=== PATIENT | female | born 1950 | race Caucasian/White ===

== ENCOUNTER 2023-03-28 16:50 | Emergency (ER) | payer MEDICARE, SELFPAY ==
--- NOTE | ~2023-03-28 | CT_ITS ---
Non-contrast Head CT History: Hemorrhage COMPARISON: 03/28/2023 Technique: Axial non-contrast imaging of the brain was performed. Dose reduction technique was used on this scan by utilizing automated exposure control and iterative reconstruction technique. The dose -length product (DLP) was 681.00 mGy-cm. Findings: Stable focal hyperdensity in the right paramedian cerebellum (coronal image 58). No other p arenchymal abnormality seen. The ventricles and subarachnoid spaces are normal in size. The calvari um appears normal. The visualized paranasal sinuses and mastoid air cells are clear. Impression: Stable focal hyperdensity in the right paramedian cerebellum. I would favor focal calcification over hemorrhage. Reviewed, dictated and finalized at location M. Impression: Stable focal hyperdensity in the right paramedian cerebellum. I would favor foc al calcification over hemorrhage.
--- NOTE | ~2023-03-28 | CT_ITS ---
EXAMINATION: CT BRAIN W/O DATE: 03/28/2023 19:42 INDICATION: Nausea and vomiting TECHNIQUE: Computed tomography (CT) of the head was performed without intravenous contrast. The dose- length product was 605.33 mGy-cm. Automated exposure control and iterative reconstruction technique w ere employed. COMPARISON: No prior studies for comparison. FINDINGS: Normal brain parenchymal volume for age. Normal luo-white differentiation. There is a foca l hyperdensity along the inferior aspect of the cerebellum paracentral to the right. Small this may r epresent calcification secondary to previous infectious/inflammatory etiology or small focal hemorrha ge. There are scattered mild periventricular and subcortical white matter changes, most likely relate d to small vessel ischemic disease (microangiopathy). There is intracranial atherosclerosis. There is calcified extra-axial mass frontal lobe measuring 1.7 x 5 cm, likely an exostosis or meningioma. No ventriculomegaly or midline shift. Midline sagittal images demonstrate a normal corpus callosum, c raniovertebral junction and sella turcica. Basilar cisterns are patent. Paranasal sinuses and mastoids are pneumatized. No depressed skull fractures. IMPRESSION: 1. Focal hyperdensity along the inferior aspect of the cerebellum paracentral to the right, axial cory ge 11. This may represent calcification secondary to previous infectious/inflammatory etiology or les s likely small focal parenchymal hemorrhage. Reviewed, dictated and finalized at location A. IMPRESSION: 1. Focal hyperdensity along the inferior aspect of the cerebellum paracentral t o the right, axial image 11. This may represent calcification secondary to prev ious infectious/inflammatory etiology or less likely small focal parenchymal he morrhage.
[2023-03-28 17:02] VITALS: BP 149/100; PULSE 64; RESP 18; TEMP 36.4; O2SAT 99
[2023-03-28 17:25] LABS: Basophils Percent Auto 0.4 % (0.2-1.2); Hemoglobin 14.9 g/dL (12.0-15.0); Immature Granulocyte Absolute 0.02 K/mm3 (0.00-0.031); Immature Granulocyte Percent A 0.2 % (0-0.5); Lymphocytes Absolute Auto 1.66 K/mm3 (0.9-3.2); Lymphocytes Percent Auto 19.7 % (18.3-44.2); Mean Corpuscular HGB Conc 34.7 g/dl (32-36); Mean Corpuscular Volume 95.3 fl (80-100); Mean Platelet Volume 9.6 fl (7.4-10.4); Monocytes Absolute Auto 0.8 K/mm3 (0.1-0.6); Monocytes Percent Auto 9.6 % (2.6-8.5); Neutrophils Absolute Auto 5.9 K/mm3 (1.3-6.7); Neutrophils Percent Auto 70.1 % (45.5-73.1); Platelet Count Result 325 k/mm3 (150-375); Red Blood Count 4.51 M/mm3 (4.2-5.4); Red Cell Distribution Width 14.9 % (11.5-14.5); White Blood Count 8.4 K/mm3 (4.5-10.0)
[2023-03-28 17:37] LABS: Alanine Aminotransferase 22 U/L (6-35); Albumin Level 4.8 g/dL (3.5-5.1); Alkaline Phosphatase 48 U/L (38-126); Anion Gap 13 mmol/L (8-16); Aspartate Amino Transferase 28 U/L (14-36); Bilirubin,Total 0.7 mg/dL (0.2-1.3); Blood Urea Nitrogen 23 mg/dL (7-17); Carbon Dioxide 20 mmol/L (22-30); Chloride 94 mmol/L (98-107); Estimated CRCL calculation 50 ml/min; Estimated Glomerular Filt Rate > 60; Glucose 147 mg/dL (65-110); Lipase 131 U/L (23-300); Sodium 127 mmol/L (137-145)
[2023-03-28 17:40] LABS: Appearance Urine Cloudy (Clear); Bacteria Urine None Seen /hpf; Bilirubin Urine Negative (Negative); Blood Urine 2+ (Negative); Color Urine Yellow (Yellow); Glucose Urine UA Negative (Negative); Ketones Urine 1+ mg/dL (Negative); Leukocyte Esterase Ur 1+ LEU/UL (Negative); Mucus Urine Present /lpf; Need Manual Microscopic Reviewed; Nitrate Urine Negative (Negative); Protein Urine 3+ mg/dL (Negative); RBC Urine 21-50 /hpf (0-2); Specific Grav Ur 1.025 (1.001-1.035); Squamous Epithelial Cell Urine Occasional /hpf (Few); Urobilinogen Urine 0.2 mg/dL (<2.0)
[2023-03-28 17:43] LABS: Add Urine Microscopic? YES
[2023-03-28] MEDS: SODIUM CHLORIDE 0.9% IV 1,000 ML 999 ML IV CONT ×2 (19:33→21:35)
[2023-03-28] MEDS: METOCLOPRAMIDE HCL INJ 10 MG/2 ML VIAL IV PUSH (19:34)
[2023-03-28 19:35] VITALS: BP 176/98; PULSE 88; RESP 15; O2SAT 98
[2023-03-28 19:58] LABS: Magnesium 2.3 mg/dL (1.6-2.3)
--- NOTE | 2023-03-28 20:12 | ECG_ITS ---
Measurements Intervals [place] Rate: 67 P: 55 [place]: 173 QRS: -6 QRSD: 105 T: 60 QT: 431 QTc: 456 Interpretive Statements SINUS RHYTHM DELAYED PRECORDIAL R/S TRANSITION BORDERLINE ST-T WAVE ABNORMALITY- LAT/HIGH LAT LEADS BORDERLINE ECG NO PREVIOUS ECG AVAILABLE FOR COMPARISON Electronically Signed On 03-28-2023 20:33:31 CDT by Darci Roy D.O.
[2023-03-28 20:46] VITALS: BP 160/94; PULSE 74; RESP 15; O2SAT 98
[2023-03-28] MEDS: diphenhydrAMINE HCl INJ 50 MG/ML VIAL 25 MG IV PUSH (20:46)
--- NOTE | 2023-03-28 21:08 | PC.NURSE ---
[facility] transfer center accepted patient by Dr. Gilmar Freed. They advised wait list is very long and expect the patient to be here for a few days.
[2023-03-28 21:11] LABS: Troponin I < 0.012 ng/mL (0.000-0.034)
--- NOTE | 2023-03-28 21:57 | ED.GENADULT ---
HPI - General Adult General Chief complaint: Nausea/Vomiting/Diarrhea Stated complaint: N/Vx3 days, htn Time Seen by Provider: 03/28/23 19:10 History of Present Illness HPI narrative: Patient 73-year-old female who presents the emergency department with chief complaint of nausea and vomiting. Patient reports she has history of metastatic breast cancer and has been undergoing whole brain radiation for metastatic lesions to her brain the patient has had 4 treatments and reports that she started having nausea and vomiting on Saturday and reports that she has been taking p.o. Compazine without improvement in her symptoms. The patient reports no focal neurological deficit reports that she feels extremely dehydrated Related Data Allergies Allergy/AdvReac Type Severity Reaction Status Date / Time aspirin Allergy Anaphylaxis Verified 03/28/23 17:06 codeine Allergy Other Verified 03/28/23 17:06 heparin Allergy Other Verified 03/28/23 17:17 Review of Systems Review of Systems: A 10 system review of systems was completed on the patient and is negative except for what is stated in the HPI. Nursing and ancillary documentation was reviewed. Exam Narrative: GENERAL: Well-appearing, well-nourished, and in no acute distress. HEAD: Normocephalic, atraumatic. EYES: PERRLA and EOMI. ENT: Nares clear, no rhinorrhea or epistaxis. Mucous membranes moist. NECK: Supple. CHEST: Clear to auscultation. No respiratory distress. HEART: Regular rate and rhythm. No murmur heard. Normal peripheral pulses. ABDOMEN: Soft, nontender, nondistended, normal active bowel sounds. EXTREMITIES: Normal range of motion. No edema. SKIN: Warm, dry, no rash. NEURO: No focal deficits. Alert and oriented x3. PSYCH: Normal mood and affect. Course Vital Signs Vital signs: Vital Signs Temperature 36.4 C 03/28/23 17:02 Pulse Rate 64 03/28/23 17:02 Respiratory Rate 18 03/28/23 17:02 Blood Pressure 149/100 H 03/28/23 17:02 Pulse Oximetry 99 03/28/23 17:02 Oxygen Delivery Room Air 03/28/23 17:02 Temperature 36.4 C 03/28/23 17:02 Pulse Rate 78 03/29/23 06:05 Respiratory Rate 15 03/29/23 06:05 Blood Pressure 122/88 03/29/23 06:05 Pulse Oximetry 97 03/29/23 06:05 Oxygen Delivery Room Air 03/28/23 17:02 Medical Decision Making MDM Narrative Medical decision making narrative: Differential diagnosis includes cerebral edema, intracranial hemorrhage, postradiation nausea and vomiting CT scan of the brain showed a hyperdensity there was unsure whether this was calcification or hemorrhage. Laboratory studies showed a white blood cell count of 8.4 electrolytes showed a BUN of 23 Patient received 2 L of normal saline boluses and maintenance fluids after that the patient received Reglan and Benadryl Patient's nausea improved while in the emergency department Due to the abnormal CT scan the case was discussed with the oncology fellow on-call and the patient was initially excepted for transfer at [facility] although there were no beds available. The patient was observed in the emergency department with hydration and had continual improvement throughout the night the patient reports no new focal neurological deficits reports that her symptoms have essentially resolved at this point a repeat CT scan shows no interval change from the CT scan yesterday and appears to be favorable for calcification. The patient is feeling much better at this time Case was discussed with the [facility] oncology fellow who agreed that the patient can go home and follow-up as an outpatient Vital Signs Vital Signs: Vital Signs Temperature 36.4 C 03/28/23 17:02 Pulse Rate 64 03/28/23 17:02 Respiratory Rate 18 03/28/23 17:02 Blood Pressure 149/100 H 03/28/23 17:02 Pulse Oximetry 99 03/28/23 17:02 Oxygen Delivery Room Air 03/28/23 17:02 Temperature 36.4 C 03/28/23 17:02 Pulse Rate 78 03/29/23 06:05 Respiratory Rate 15
[2023-03-28 22:09] LABS: Troponin I < 0.012 ng/mL (0.000-0.034)
[2023-03-28 23:32] VITALS: BP 172/92; PULSE 78; RESP 15; O2SAT 98
[2023-03-29 06:05] VITALS: BP 122/88; PULSE 78; RESP 15; O2SAT 97
[2023-03-29 06:55] VITALS: BP 126/86; PULSE 76; RESP 14; O2SAT 100
== END 2023-03-29 06:56 | disposition home or self-care (01) ==
PROVIDERS: Emergency Medicine; Emergency Provider Emergency Medicine
DX: E86.0 Dehydration (principal); R11.2 Nausea with vomiting, unspecified; C79.31 Secondary malignant neoplasm of brain; Z85.3 Personal history of malignant neoplasm of breast; R94.31 Abnormal electrocardiogram [ECG] [EKG]; R82.998 Other abnormal findings in urine
CPT/HCPCS: 36415; 70450; 80053; 81001; 83690; 83735; 84484; 85025; 87086; 87088; 93005; 96361; 96374; 96375; 99284; J1200; J2765; J7030